=== PATIENT | male | born 1980 | race Caucasian/White ===

== ENCOUNTER → 2021-12-14 | Outpatient (CLI) | payer OTHER ==
--- NOTE | 2021-12-14 10:37 | DIREP ---
PROCEDURE:CHEST 2 VIEWS COMPARISON:None. INDICATIONS:Z00.00 DIAGNOSTIC HISTORY AND PHYSICAL EVALUATION FINDINGS: LUNGS/PLEURA:No significant pulmonary parenchymal abnormalities. No effusions. VASCULATURE:Normal. Unremarkable pulmonary vasculature. CARDIAC:Normal. No cardiac silhouette abnormality or cardiomegaly. MEDIASTINUM:Normal. No visible mass or adenopathy. BONES:Mild degenerative changes of the spine. OTHER:Negative. CONCLUSION:No acute cardiopulmonary abnormality. Dictated by: Suresh Galindo M.D. on 12/14/2021 at 10:35 AM
== END | disposition home or self-care (01) ==
LOC: RAD 09:31
PROVIDERS: ATTEND Nurse Practitioner
DX: Z00.00 Encounter for general adult medical examination without abnormal findings (principal)
CPT/HCPCS: 71046